=== PATIENT | female | born 1995 | race Two or more races ===

== ENCOUNTER 2019-05-10 12:11 | Emergency (ER) | payer MEDICAID ==
[~2019-05-10] VITALS: Ht 157.5 cm; Wt 139.0 kg
[~2019-05-10 12:11] MED LIST: ALBU6.7H8 INH; MECL-76 PO
--- NOTE | 2019-05-10 13:18 | NUR ---
PT UP TO BR TO COLLECT STOOL SAMPLE AND URINE SAMPLE. MD IN TO ASSESS PATIENT.
[2019-05-10 13:40] LABS: BASOPHILS # (AUTO) 0.08 x10^3/uL (0-0.1); BASOPHILS % (AUTO) 1 % (0-1); EOSINOPHILS # (AUTO) 0.25 x10^3/uL (0-0.4); EOSINOPHILS % (AUTO) 2 % (1-7); LYMPHOCYTES # (AUTO) 3.45 x10^3/uL (1-3.4); LYMPHOCYTES % (AUTO) 28 % (22-44); MD NO; MEAN CORPUSCULAR HEMOGLOBIN 26.6 pg (27.0-34.8); MEAN CORPUSCULAR HGB CONC 33.6 g/dL (32.4-35.8); MEAN CORPUSCULAR VOLUME 79.3 fL (80-100); MEAN PLATELET VOLUME 8.6 fL (7.4-10.4); MONOCYTES # (AUTO) 0.83 x10^3/uL (0.2-0.8); MONOCYTES % (AUTO) 7 % (2-9); NEUTROPHILS # (AUTO) 7.71 x10^3/uL (1.8-6.8); NEUTROPHILS % (AUTO) 63 % (42-75); PLATELET COUNT 404 x10^3/uL (130-400); RED BLOOD COUNT 5.41 x10^6/uL (3.82-5.3); RED CELL DISTRIBUTION WIDTH 15.9 % (9.6-15.2)
[2019-05-10 13:49] LABS: ALANINE AMINOTRANSFERASE 16 U/L (12-78); ALBUMIN 2.9 g/dL (3.4-5.0); ANION GAP 5 mmol/L (5-15); CALCIUM 8.2 mg/dL (8.5-10.1); CHLORIDE 109 mmol/L (98-107)
[2019-05-10 13:54] LABS: ALKALINE PHOSPHATASE 94 U/L (45-117); BILIRUBIN,TOTAL 0.2 mg/dL (0.2-1.0); CREATININE 0.66 mg/dL (0.55-1.02); TOTAL PROTEIN 7.4 g/dL (6.4-8.2)
[2019-05-10 14:00] VITALS: BP 127/68
[2019-05-10] MEDS ORDERED: ONDANSETRON ODT 4 MG PO ONE (14:30)
--- NOTE | 2019-05-10 14:58 | NUR ---
PT UNABLE TO GIVE STOOL SAMPLE. PT REQUESTING FOOD TO HELP HER HAVE A BM.
[2019-05-10] MEDS ORDERED: ONDANSETRON ODT 4 MG ONE (15:10)
[2019-05-10 15:26] LABS: CULTURE INDICATED? YES; MICROSCOPIC INDICATED
== END 2019-05-10 16:01 ==
LOC: ED 15:50
DX: R19.7 Diarrhea, unspecified (principal); R11.2 Nausea with vomiting, unspecified
CPT/HCPCS: 36415; 80053; 81001; 84703; 85025; 87086; 99283

== ENCOUNTER 2020-09-25 21:57 | Emergency (ER) | payer MEDICAID ==
[~2020-09-25] VITALS: Ht 157.5 cm; Wt 133.7 kg
--- NOTE | 2020-09-25 23:30 | NUR ---
pt ambulatory from lobby to room at this time.
[2020-09-25 23:49] LABS: MEAN CORPUSCULAR HEMOGLOBIN 25.4 pg (27.0-34.8); MEAN CORPUSCULAR HGB CONC 33.4 g/dL (32.4-35.8); MEAN PLATELET VOLUME 8.1 fL (7.4-10.4); PLATELET COUNT 486 x10^3/uL (130-400); RED BLOOD COUNT 5.37 x10^6/uL (3.82-5.3); RED CELL DISTRIBUTION WIDTH 17.2 % (9.6-15.2)
[2020-09-25 23:59] LABS: ALBUMIN 3.1 g/dL (3.4-5.0); ANION GAP 8 mmol/L (5-15); CHLORIDE 109 mmol/L (98-107); CREATININE 0.68 mg/dL (0.55-1.02)
--- NOTE | 2020-09-26 00:05 | NUR ---
PHLEBOTOMY SUPPORT TECH TO ROOM AND BLOOD DRAWN. PT PROVIDED URINE CUP AND ADVISED WE NEED URINE SAMPLE. PT V/U.
[2020-09-26 00:13] LABS: EOS#(MANUAL) 0.17 x10^3/uL (0.0-0.4); EOS% (MANUAL) 1 % (1-7); LYMPH#(MANUAL) 3.72 x10^3/uL (1-3.4); LYMPHS% (MANUAL) 22 % (22-44); MONOS#(MANUAL) 1.69 x10^3/uL (0.3-2.7); MONOS% (MANUAL) 10 % (2-9); REACTIVE LYMPHS # (MANUAL) 1.01 x10^3/uL (0-0); REACTIVE LYMPHS % (MANUAL) 6 % (0-0); SEG#(MANUAL) 10.31 x10^3/uL (1.8-6.8); SEGS% (MANUAL) 61 % (42-75)
[2020-09-26 00:14] LABS: <PLATELET ESTIMATE> INCREASED; <RBC MORPHOLOGY> NORMAL; LARGE PLATELETS 1+
--- NOTE | 2020-09-26 00:42 | NUR ---
PT PROVIDED SMALL AMOUNT OF URINE AND SAMPLE WALKED TO LAB. PT RESTING COMFORTABLY IN NO ACUTE DISTRESS AT THIS TIME, AWAITING ALL LAB RESULTS TO COME BACK.
[2020-09-26 01:26] LABS: MICROSCOPIC INDICATED
[2020-09-26] MEDS ORDERED: MAALOX/HYOSCYAMINE/LIDOCAINE 45 ML BTL ONE (02:23)
[2020-09-26] MEDS ORDERED: CEFDINIR 300 MG CAPSULE ONE (02:26)
[2020-09-26] MEDS ORDERED: MAALOX/HYOSCYAMINE/LIDOCAINE 45 ML BTL PO ONE (02:30)
--- NOTE | 2020-09-26 02:30 | NUR ---
RECIEVED REPORT FROM JAI RN
[2020-09-26 02:34] VITALS: BP 127/58
--- NOTE | 2020-09-26 02:43 | NUR ---
Patient given discharge instructions and they have confirmed that they understand the instructions. Patient ambulatory with steady gait. NAD, all questions answered appropriately, denies additional needs at this time. No personal belongings left in room after discharge.
[2020-09-26] MEDS ORDERED: CEFDINIR 300 MG CAPSULE PO ONE (03:00)
== END 2020-09-26 02:45 | disposition home or self-care (01) ==
LOC: ED 23:40
DX: O23.11 Infections of bladder in pregnancy, first trimester (principal); R10.30 Lower abdominal pain, unspecified; R11.2 Nausea with vomiting, unspecified; R30.0 Dysuria; Z90.49 Acquired absence of other specified parts of digestive tract; Z3A.01 Less than 8 weeks gestation of pregnancy
CPT/HCPCS: 36415; 76801; 80048; 81001; 82040; 84702; 84703; 85025; 87086; 99284